=== PATIENT | female | born 1970 | race Caucasian/White ===

== ENCOUNTER → 2016-09-23 | Outpatient (CLI) | payer MEDICAID ==
[~2016-09-23] MED LIST: DIAZEPAM2 MG PO; FLAGYL 250MG.250 MG PO; FLEXERIL10 M1 PO; FLEXERIL10 MG PO; IBUPROFEN400 MG PO; LORTAB 5/500 501 TAB PO; NAPROSYN 500MG500 MG PO; NEURONTIN600 MG PO; NOMEDS; TRAMADOL 50MG T50 MG PO; TYLENOL ES500 M1 PO; ULTRACET 325 MG1 TAB PO
--- NOTE | 2016-09-26 17:19 | RADIOLOGY REPORT PS360 ---
DIG MAMM-DX UNI A/VWS-LT W/CAD LEFT BREAST ULTRASOUND WITH AXILLA COMPARISON: 09/11/2016 and 12/06/2009 INDICATION: Follow-up abnormal mammogram ORDERING PHYSICIAN: Vinnie Cabrales MD PATIENT AGE: 46 years TECHNIQUE: Spot compression views performed along with left breast ultrasound FINDINGS: Spot compression views confirm a 10 mm nodule in the retroareolar region. The margins are somewhat obscured therefore, ultrasound was obtained.. Left breast ultrasound: There is a 10 mm cyst in the retroareolar region on the left corresponding to the mammographic abnormality. In addition, a 4 mm cyst is present at 12:00 above the nipple. IMPRESSION: Benign findings, left mammogram abnormality corresponds to a benign-appearing cyst BI-RADS CATEGORY: 2_Benign RECOMMENDED FOLLOWUP: Screening mammogram August 2017 (A letter has been sent to the patient regarding results of the study.)
== END ==
LOC: RAD 14:35
DX: Z01.419 Encounter for gynecological examination (general) (routine) without abnormal findings (principal); R92.8 Other abnormal and inconclusive findings on diagnostic imaging of breast
CPT/HCPCS: G0206-LT

== ENCOUNTER → 2016-11-05 | Outpatient (CLI) | payer MEDICAID ==
[2016-11-05 18:41] LABS: AMPHETAMINES/METAMPHETAMINES NEGATIVE ng/mL (<1000)
[2016-11-10 20:36] LABS: Alprazolam Negative (Cutoff=100); Benzodiazepines Positive ng/mL (Cutoff=100); Clonazepam Negative (Cutoff=100); Flurazepam Negative (Cutoff=100); Lorazepam Negative (Cutoff=100); Midazolam Negative (Cutoff=100); Opiates Negative (Cutoff=100); Temazepam Positive (.); Triazolam Negative (Cutoff=100)
== END ==
LOC: LAB 15:22
PROVIDERS: Emergency Medicine
DX: Z79.899 Other long term (current) drug therapy (principal)
CPT/HCPCS: G0480

== ENCOUNTER → 2016-11-21 | Outpatient (CLI) | payer MEDICAID ==
--- NOTE | 2016-11-23 10:32 | RADIOLOGY REPORT PS360 ---
MRI-L-SPINE W/O COMPARISON: MRI scan lumbar spine 10/27/2013 HISTORY: Back pain TECHNIQUE: Standard sagittal and axial sequences were performed along with a myelogram sequence. FINDINGS: There is normal curvature and alignment. The marrow signal is normal on all lumbar vertebrae. Again noted is slight disc space narrowing at L5-S1 level with is a mild diffuse central disc bulge basically stable and unchanged from the previous exam. There is mild neural foraminal narrowing bilaterally at this level. All the remaining disks appear normal. The conus is normal. The myelogram sequence is unremarkable. IMPRESSION: Mild diffuse disc bulge L5-S1 basically stable and unchanged from the previous exam but resulting in mild bilateral neural foraminal narrowing but slightly more prominent left side than right.
== END ==
LOC: RAD 11-19 08:45
DX: M54.5 Low back pain (principal)

== ENCOUNTER → 2016-12-25 | Outpatient (CLI) | payer MEDICAID ==
[~2016-12-25] MED LIST changes: +HYDROCODONE-APA1 TA1 PO; +MOTRIN 600MG.600 MG PO
--- NOTE | 2016-12-25 14:53 | RADIOLOGY REPORT PS360 ---
WRIST-2 VIEWS-LT HISTORY: Follow-up fracture FX DISTAL RADIUS ORDERING PHYSICIAN: AMAIRANI YOST MD PATIENT AGE: 46 years COMPARISON: 12/17/2016 FINDINGS: The exam is obtained through a cast showing good alignment of the distal radial fracture with fracture is difficult to visualize due to the overlying cast. IMPRESSION: Good alignment distal radial fracture.
== END ==
LOC: RAD 14:26
DX: S52.502A Unspecified fracture of the lower end of left radius, initial encounter for closed fracture (principal)

== ENCOUNTER → 2017-01-09 | Outpatient (CLI) | payer MEDICAID | LOC: RAD 14:25 | DX: N60.02 Solitary cyst of left breast (principal) ==

== ENCOUNTER → 2017-01-22 | Outpatient (CLI) | payer MEDICAID ==
[~2017-01-22] MED LIST changes: +ALENDRONATE SOD70 M1 PO; +ASPIRIN 81MG TA81 MG PO; +BISOPROLOL 5MG T5 MG PO; +ESTRADIOL1 MG OR; +GABAPENTIN300 M1 PO; +LISINOPRIL/HCTZ1 TA3 FT; +WELLBUTRIN XL150 MG PO; +[UNRECOGNIZED DRUG - OTHER]
--- NOTE | 2017-01-22 16:03 | RADIOLOGY REPORT PS360 ---
BONE DENSITOMETRY(HIP:LT SPINE HISTORY: HX FX'S , WRIST FRACTURE ORDERING PHYSICIAN: Konrad Jerome MD PATIENT AGE: 47 years COMPARISON: None FINDINGS: The BMD measured at the right femoral neck is 0.823 g/cm squared with a T score of -1.5. This is considered Osteopenic according to the World Health Organization criteria. Fracture risk is Moderate. Treatment is advised. The lumbar spine density from L1 to L4 has a T score of -0.4 IMPRESSION: Osteopenia. Treatment recommended. Suggest follow-up exam January 2019
== END ==
LOC: RAD 10:00
DX: S62.109A Fracture of unspecified carpal bone, unspecified wrist, initial encounter for closed fracture (principal); Z87.81 Personal history of (healed) traumatic fracture

== ENCOUNTER → 2017-01-28 | Outpatient (CLI) | payer MEDICAID ==
--- NOTE | 2017-01-28 15:24 | RADIOLOGY REPORT PS360 ---
WRIST-3 VIEWS-LT HISTORY: Follow-up fracture HEALING OF LEFT WRIST FX ORDERING PHYSICIAN: AMAIRANI YOST MD PATIENT AGE: 47 years COMPARISON: 12/25/2016 FINDINGS: A cast has been removed. There is a healing transverse fracture involving the distal aspect of radius with a longitudinal component along the ulnar aspect of the distal radius. There is sclerosis over the transverse aspect of the fracture consistent with healing. There remains some lucency along the longitudinal component. There remains good alignment. IMPRESSION: Interval removal of the cast. Good alignment of distal radial fracture as described above
== END ==
LOC: RAD 13:10
DX: S52.502D Unspecified fracture of the lower end of left radius, subsequent encounter for closed fracture with routine healing (principal)